=== PATIENT | male | born 1965 | race African-American/Black ===

== ENCOUNTER 2021-08-04 11:42 | Inpatient (IN) | payer OTHER ==
[~2021-08-04] VITALS: Ht 182.9 cm; Wt 96.2 kg
[2021-08-04] MEDS ORDERED: ASPIRIN 325MG EC TABLET PO ONE (12:15)
[2021-08-04 12:29] LABS: BASOPHILS % 0.7 % (0.0-2.0); HEMATOCRIT. 41.2 % (42.0-52.0); HEMOGLOBIN. 13.8 g/dL (14.0-18.0); LYMPHOCYTES % 31.8 % (20.0-50.0); MEAN CORPUSCULAR HEMOGLOBIN 30.9 pg (28.0-32.0); MEAN CORPUSCULAR VOLUME 92.4 fL (80.0-94.0); MEAN PLATELET VOLUME 6.8 fl (7.4-10.4); MONOCYTES % 7.2 % (2.0-8.0); NEUTROPHILS % 57.3 % (40.0-76.0); PLATELET 176 x1000/uL (130-400); RED BLOOD CELL COUNT 4.45 mill/uL (4.7-6.1); RED CELL DISTRIBUTION WIDTH 13.1 % (11.6-14.6)
[2021-08-04 12:31] LABS: CHLORIDE 106 mEq/L (98-107)
[2021-08-04 12:38] LABS: LDL CHOLESTEROL 96 mg/dL (5-100)
[2021-08-04 12:39] LABS: ETHANOL BLOOD < 10 mg/dL
[2021-08-04 12:45] LABS: PROTHROMBIN TIME 10.8 sec (9.6-11.0)
[2021-08-04 12:52] LABS: CLARITY URINE CLEAR (CLEAR); COLOR URINE YELLOW (YELLOW); KETONES URINE NEGATIVE (NEGATIVE); LEUKOCYTE ESTERASE URINE NEGATIVE (NEGATIVE); NITRITE URINE NEGATIVE (NEGATIVE); OCCULT BLOOD URINE NEGATIVE (NEGATIVE); PROTEIN URINE NEGATIVE (NEGATIVE); SPECIFIC GRAVITY URINE 1.014 (1.005-1.030); UROBILINOGEN URINE 0.2 E.U./dL (0.2-1.0)
[2021-08-04 13:03] LABS: CANNABINOID URINE SCREEN NEGATIVE (NEGATIVE); METHADONE URINE SCREEN NEGATIVE (NEGATIVE); OPIATES URINE SCREEN NEGATIVE (NEGATIVE); PHENCYCLIDINE URINE SCREEN NEGATIVE (NEGATIVE)
[2021-08-04 13:05] LABS: *AMPHETAMINES SCREEN URINE NEGATIVE (NEGATIVE); *BENZODIAZEPINES SCREEN URINE NEGATIVE (NEGATIVE)
[2021-08-04 13:10] LABS: *COCAINE SCREEN URINE NEGATIVE (NEGATIVE)
[2021-08-04 13:13] LABS: *BARBITURATES SCREEN URINE NEGATIVE (NEGATIVE)
[2021-08-04] MEDS ORDERED: IOHEXOL-350 100 ML BOTTLE ONE (15:20)
[2021-08-04] MEDS ORDERED: ACETAMINOPHEN 325MG TABLET PO PRN (18:15)
[2021-08-04] MEDS ORDERED: CLONIDINE 0.1MG TABLET PO PRN (18:15)
[2021-08-04] MEDS ORDERED: DIPHENHYDRAMINE 50MG/ML VIAL IV PRN (18:15)
[2021-08-04] MEDS ORDERED: IPRATROPIUM/ALBUTEROL 0.5-3(2.5)MG/3ML NEB HHN PRN (18:15)
[2021-08-04] MEDS ORDERED: ONDANSETRON HCL 4MG/2ML INJ IV PRN (18:15)
[2021-08-04 21:22] VITALS: BP 153/83
[2021-08-04 21:35] VITALS: BP 153/83
[2021-08-04] MEDS: ENOXAPARIN 40MG/0.4ML SYR SUBCUT SCH (22:34)
[2021-08-05] VITALS: BP 113/55
[2021-08-05] MEDS ORDERED: LATA2.5D14 EACHEYE (00:51)
[2021-08-05] MEDS ORDERED: ASPI-1497 PO (00:51)
[2021-08-05] MEDS ORDERED: ATOR40TA70 PO (00:51)
[2021-08-05 04:00] VITALS: BP 108/71
[2021-08-05 06:55] LABS: BASOPHILS % 0.4 % (0.0-2.0); EOSINOPHILS % 3.4 % (0.0-5.0); HEMATOCRIT. 42.2 % (42.0-52.0); HEMOGLOBIN. 14.2 g/dL (14.0-18.0); LYMPHOCYTES % 30.4 % (20.0-50.0); MEAN CORPUSCULAR VOLUME 92.2 fL (80.0-94.0); MONOCYTES % 6.5 % (2.0-8.0); NEUTROPHILS % 59.3 % (40.0-76.0); PLATELET 181 x1000/uL (130-400); RED BLOOD CELL COUNT 4.57 mill/uL (4.7-6.1); RED CELL DISTRIBUTION WIDTH 13.1 % (11.6-14.6)
[2021-08-05 06:58] LABS: CHLORIDE 109 mEq/L (98-107)
[2021-08-05 07:10] LABS: LDL CHOLESTEROL 94 mg/dL (5-100)
[2021-08-05 07:12] LABS: HDL CHOLESTEROL 36 mg/dL (40-59)
[2021-08-05 08:00] VITALS: BP 115/64
[2021-08-05 12:00] VITALS: BP 125/65
[2021-08-05 16:01] VITALS: BP_SYST 128; BP_SYST 134; BP_SYST 153; BP_DIAS 50; BP_DIAS 85; BP_DIAS 87
[2021-08-05 20:00] VITALS: BP_SYST 125; BP_SYST 130; BP_SYST 140; BP_DIAS 63; BP_DIAS 73; BP_DIAS 85
[2021-08-05] MEDS: ENOXAPARIN 40MG/0.4ML SYR SUBCUT SCH (22:02)
[2021-08-06] VITALS: BP 122/57
[2021-08-06 04:00] VITALS: BP 118/65
[2021-08-06 08:00] VITALS: BP 112/79
[2021-08-06 12:00] VITALS: BP_SYST 114; BP_SYST 119; BP_SYST 128; BP_DIAS 73; BP_DIAS 81; BP_DIAS 85
[2021-08-06 16:00] VITALS: BP 113/79
[2021-08-06 18:01] VITALS: BP 114/85
== END 2021-08-06 18:45 | disposition home or self-care (01) | DRG 47 ==
LOC: ER 11:42 → EDBEDREQ 12:13 → EDBEDREQTM 12:13 → EDBEDREQSVC 12:13 → MICUSO 14:08 → EDBEDREQTM 14:15 → EDBEDREQ 14:15 → 7EST 20:52
PROVIDERS: ADMIT Internal Medicine; ATTEND Internal Medicine
DX: G45.9 Transient cerebral ischemic attack, unspecified (principal); E78.00 Pure hypercholesterolemia, unspecified; H26.9 Unspecified cataract; H40.9 Unspecified glaucoma; E78.5 Hyperlipidemia, unspecified; I95.1 Orthostatic hypotension; I10 Essential (primary) hypertension; Z79.82 Long term (current) use of aspirin; Z79.899 Other long term (current) drug therapy
CPT/HCPCS: 36415; 70496; 70498; 70551; 71045; 80053; 80061; 80305; 80320; 81003; 82962; 83721; 84443; 84484; 85025; 93005; 93306; 93970; 97162; 97166; 99291; J1650; Q9967; G0480